=== PATIENT | female | born 1960 | race African-American/Black ===

== ENCOUNTER 2017-02-08 15:00 | Inpatient (IN) | payer OTHER ==
--- NOTE | 2017-02-08 15:49 | PDOC ---
History of Present Illness - General Chief Complaint: Pain Stated Complaint: PAIN/ ABD, BACK Time Seen by Provider: 02/08/17 15:44 History Source: Patient Exam Limitations: No Limitations - History of Present Illness Initial Comments: CHIEF COMPLAINT: 56 y/o afebrile female with PMH NIDDM c/o worsening abdominal pain that she attributes to her gallstones x 3 days. HISTORY OF PRESENT ILLNESS: The patient states she has known gallstones and thinks that's what is causing her current pain. She also c/o mild nausea and diarrhea. She denies f/c, DEY, CP, SOB, back pain, hematuria, dysuria. She has not taken anything for her symptoms. PCP is Dr. Ramos Vital signs on arrival are within normal limits. REVIEW OF SYSTEMS: GENERAL/CONSTITUTIONAL: No fever/chills. No weakness. No weight change. HEAD, EYES, EARS, NOSE AND THROAT: No change in vision. No ear pain or discharge. No sore throat. CARDIOVASCULAR: No chest pain or shortness of breath. RESPIRATORY: No cough, wheezing, or hemoptysis. GASTROINTESTINAL: +abdominal pain, nausea, diarrhea. No vomiting, constipation. GENITOURINARY: No dysuria, frequency, or change in urination. MUSCULOSKELETAL: No joint or muscle swelling or pain. No neck or back pain. SKIN: No rash or easy bruising. NEUROLOGIC: No headache, vertigo, loss of consciousness, or loss of sensation. PHYSICAL EXAM: GENERAL: The patient is awake, alert, and fully oriented, in no acute distress. She is an obese, ambulatory female in mild discomfort. HEAD: Normal with no signs of trauma. ENT: Pupils equal, round and reactive to light, extraocular movements intact, sclera anicteric, conjunctiva clear. Neck supple. LUNGS: Clear to auscultation bilaterally. Normal excursion. No respiratory distress or use of accessory muscles. CV: RRR, S1/S2, no MRG. Cap refill < 2 sec. ABDOMEN: Soft, RUQ TTP with +Milligan's sign. Minimal epigastric TTP. No rebound , guarding or rigidity. No lower abdominal TTP. EXTREMITIES: Normal range of motion, no edema. NEUROLOGICAL: Normal speech, normal gait. CN II-XII grossly intact. PSYCH: Normal mood, normal affect. SKIN: Warm, dry, normal turgor, no rashes or lesions noted. Past History - Past Medical History Allergies/Adverse Reactions: Allergies Allergy/AdvReac Type Severity Reaction Status Date / Time No Known Allergies Allergy Verified 02/08/17 15:03 Home Medications: Ambulatory Orders Metformin HCl 500 mg PO BID #60 tablet 02/13/17 Asthma: Yes Diabetes: Yes Hypercholesterolemia: Yes - Surgical History Abdominal Surgery: Yes (tummy tuck) - Psycho/Social/Smoking Cessation Hx Anxiety: No Suicidal Ideation: No Smoking Status: No Smoking History: Never smoked Number of Cigarettes Smoked Daily: 0 Information on smoking cessation initiated: No Hx Alcohol Use: Yes (occasional) Drug/Substance Use Hx: No Substance Use Type: None *Physical Exam - Vital Signs Last Vital Signs Temp Pulse Resp BP Pulse Ox 97.9 F 65 17 126/95 98 02/08/17 15:02 02/08/17 15:02 02/08/17 15:02 02/08/17 15:02 02/08/17 15:02 ED Treatment Course - LABORATORY CBC & Chemistry Diagram: 02/10/17 06:20 02/13/17 06:05 Medical Decision Making - Medical Decision Making A/P: 56 y/o afebrile female with worsening RUQ pain x 3 days. Possible cholecystitis. Plan is as follows: 1. Labs 2. UA/hcg 3. Gallbladder ultrasound 4. IV fluids 5. IV pepcid Gallbladder Ultrasound IMPRESSION: Mild hepatomegaly with fatty infiltration. Gallbladder stones with the largest possibly nonmobile stone at the fundus measuring 2.2cm with a sludge layering posteriorly. No sonographic evidence of acute cholecystitis. Correlate clinically for further evaluation. I am signing this patient out to my colleague: CAROLYN Curtis In brief, this patient is being seen in the ED for a chief complaint of: RUQ pain I have completed the initial assessment interview note and have ordered: labs, gallbladder ultrasound, IV fluids, IV pepcid I have reviewed the following results: gallbladder ultrasound Pending results are: rest Please call the PCP: Dr. Ramos Plan for disposition is as follows: Review labs, reassess *DC/Admit/Observation/Transfer Diagnosis at time of Disposition: Cholelithiasis - Discharge Dispostion Disposition: HOME Condition at time of disposition: Critical - Prescriptions - Referrals
[2017-02-08] MEDS ORDERED: SODIUM CHLORIDE 1,000 ML IV STA (16:00)
[2017-02-08 18:37] LABS: URINE APPEARANCE CLEAR; URINE BLOOD NEGATIVE (NEGATIVE); URINE COLOR AMBER; URINE GLUCOSE (UA) 1+ (NEGATIVE); URINE KETONE TRACE (NEGATIVE); URINE LEUK ESTERASE NEGATIVE (NEGATIVE); URINE NITRITE NEGATIVE (NEGATIVE); URINE UROBILINOGEN 4.0 E.U/dl mg/dL (0.2-1.0)
[2017-02-08] MEDS ORDERED: FAMOTIDINE 20 MG/50 ML IVPB 50 ML IVPB ONE ×2 (18:37→19:02)
[2017-02-08 18:45] LABS: BASOPHIL 0.4 % (0-2.0); EOSINOPHIL 1.3 % (0-4.5); MCH 27.7 pg (25.7-33.7); MEAN CELL VOLUME 86.6 fl (80-96); NEUTROPHILS 63.6 % (42.8-82.8); PLATELET COUNT 209 K/MM3 (134-434); RDW 14.7 % (11.6-15.6); WHITE BLOOD COUNT 6.2 K/mm3 (4.0-10.0)
[2017-02-08 19:09] LABS: URINE PROTEIN 1+ (NEGATIVE)
[2017-02-08 19:10] LABS: ALBUMIN 3.7 g/dl (3.4-5.0); ANION GAP 7 (8-16); BILIRUBIN,TOTAL 1.9 mg/dL (0.2-1.0); CALCIUM 9.2 mg/dL (8.5-10.1); CO2 31 mmol/L (21-32); CREATININE 0.8 mg/dL (0.55-1.02); GLUCOSE,RANDOM 104 mg/dL (74-106); SGOT/AST 288 U/L (15-37); SGPT/ALT 163 U/L (12-78); TOT PROT 7.4 g/dl (6.4-8.2)
[2017-02-08 19:11] LABS: ALK PHOS 165 U/L (45-117)
[2017-02-08] MEDS ORDERED: ONDANSETRON 4 MG/2 ML VIAL IVPUSH ONE (19:43)
[2017-02-08] MEDS ORDERED: ONDANSETRON 4 MG/2 ML VIAL ONE (19:50)
--- NOTE | 2017-02-08 20:13 | PDOC ---
*Physical Exam - Vital Signs Last Vital Signs Temp Pulse Resp BP Pulse Ox 97.9 F 65 17 126/95 98 02/08/17 15:02 02/08/17 15:02 02/08/17 15:02 02/08/17 15:02 02/08/17 15:02 - Physical Exam Comments: 02/08/17 19:15 Sign-out received from outgoing ER provider Pravin. Pt interviewed and examined. Ancillary studies reviewed. Awaiting labs. 02/08/17 19:58 Laboratory Tests 02/08/17 17:20 Total Bilirubin 1.9 H D AST 288 H D ALT 163 H D Alkaline Phosphatase 165 H D Patient continues to c/o of persistent RUQ pain and nausea. Patient riffler tender on exam. Discussed case with on-call surgeon Dr. Monroe; patient needs MRCP. Will admit for MRCP and GI consult. MD Monroe will come see patient. 02/08/17 20:32 Discussed case with hospitalist resident MD Fields, patient to be admitted to med /surg. ED Treatment Course - LABORATORY CBC & Chemistry Diagram: 02/08/17 17:20 02/08/17 17:20 - ADDITIONAL ORDERS Additional order review: Laboratory Results 02/08/17 02/08/17 17:20 17:20 Sodium 139 Potassium 4.0 Chloride 101 Carbon Dioxide 31 Anion Gap 7 L BUN 11 Creatinine 0.8 Creat Clearance w eGFR > 60 Random Glucose 104 Calcium 9.2 Total Bilirubin 1.9 H D AST 288 H D ALT 163 H D Alkaline Phosphatase 165 H D Total Protein 7.4 Albumin 3.7 Lipase 212 Urine Color Renetta Urine Appearance Clear Urine pH 6.0 Urine Protein 1+ H Urine Glucose (UA) 1+ H Urine Ketones Trace H Urine Blood Negative Urine Nitrite Negative Urine Bilirubin 2.0 Urine Urobilinogen 4.0 e.u/dl H Ur Leukocyte Esterase Negative Urine HCG, Qual Negative 02/08/17 17:20 RBC 4.52 MCV 86.6 MCHC 32.0 RDW 14.7 MPV 9.0 Neutrophils % 63.6 D Lymphocytes % 27.0 D Monocytes % 7.7 Eosinophils % 1.3 Basophils % 0.4 - Medications Given in the ED: ED Medications Discontinued Medications Generic Name Dose Route Start Last Admin Trade Name Freq PRN Reason Stop Dose Admin Sodium Chloride 1,000 mls @ 1,000 mls/hr 02/08/17 16:00 02/08/17 16:04 Normal Saline - IV 02/08/17 16:59 1,000 mls/hr ASDIR STA Administration Famotidine/Sodium Chloride 50 mls @ 100 mls/hr 02/08/17 18:37 02/08/17 19:00 Pepcid 20 Mg Premixed Ivpb - IVPB 02/08/17 19:06 100 mls/hr ONCE ONE Administration Ondansetron HCl 4 mg 02/08/17 19:43 02/08/17 19:48 Zofran Injection IVPUSH 02/08/17 19:44 4 mg ONCE ONE Administration *DC/Admit/Observation/Transfer Diagnosis at time of Disposition: Cholelithiasis - Discharge Dispostion Admit: Yes - Referrals - Patient Instructions - Post Discharge Activity
--- NOTE | 2017-02-08 20:35 | PN ---
Teaching Attending Note Name of Resident: Ana Luisa Fields ATTENDING PHYSICIAN STATEMENT I saw and evaluated the patient. I reviewed the resident's note and discussed the case with the resident. I agree with the resident's findings and plan as documented. SUBJECTIVE: 56 yo F with pmhx of NIDDM, Asthma, hemmoriods who presents with abdominal pain X 3 days. States she has bright red blood from her hemmoriods occasionally. Notes she has nausea, but no vomiting. No chest pain, pressure or shortness of breath. OBJECTIVE: Physical: VS: Vital Signs Period Temp Pulse Resp BP Sys/Gonzalez Pulse Ox Last 24 Hr 97.9 F 65 17 126/95 98-98 GEN: NAD, resting in bed HEENT: NCAT, PERRL, throat without erythema or exudates CARD: RRR S1, S2 RESP: CTAB ABD: BS X4, NTD to palpation EXT: Trace pitting edema, bilateral and equal CBCD WBC 6.2 K/mm3 (4.0-10.0) 02/08/17 17:20 RBC 4.52 M/mm3 (3.60-5.2) 02/08/17 17:20 Hgb 12.5 GM/dL (10.7-15.3) 02/08/17 17:20 Hct 39.2 % (32.4-45.2) 02/08/17 17:20 MCV 86.6 fl (80-96) 02/08/17 17:20 MCHC 32.0 g/dl (32.0-36.0) 02/08/17 17:20 RDW 14.7 % (11.6-15.6) 02/08/17 17:20 Plt Count 209 K/MM3 (134-434) 02/08/17 17:20 MPV 9.0 fl (7.5-11.1) 02/08/17 17:20 CMP Sodium 139 mmol/L (136-145) 02/08/17 17:20 Potassium 4.0 mmol/L (3.5-5.1) 02/08/17 17:20 Chloride 101 mmol/L (98-107) 02/08/17 17:20 Carbon Dioxide 31 mmol/L (21-32) 02/08/17 17:20 Anion Gap 7 (8-16) L 02/08/17 17:20 BUN 11 mg/dL (7-18) 02/08/17 17:20 Creatinine 0.8 mg/dL (0.55-1.02) 02/08/17 17:20 Creat Clearance w eGFR > 60 (>60) 02/08/17 17:20 Random Glucose 104 mg/dL (74-106) 02/08/17 17:20 Calcium 9.2 mg/dL (8.5-10.1) 02/08/17 17:20 Total Bilirubin 1.9 mg/dL (0.2-1.0) H D 02/08/17 17:20 AST 288 U/L (15-37) H D 02/08/17 17:20 ALT 163 U/L (12-78) H D 02/08/17 17:20 Alkaline Phosphatase 165 U/L (45-117) H D 02/08/17 17:20 Total Protein 7.4 g/dl (6.4-8.2) 02/08/17 17:20 Albumin 3.7 g/dl (3.4-5.0) 02/08/17 17:20 ABD US: Mild hepatomegaly with fatty infilteration, Cholelithiasis w non-mobile stone @ fundus 2.2cm, posterior sludge. No acute choley by US ASSESSMENT AND PLAN: 56 F with NIDDM who presents with abdominal pain found to have inc; bili and lfts with choleithiasis, will be admitted for ro choledcholithiasis 1.) Abdominal Pain DDx: Choledocholithiasis, acute choley - MRCP - NPO - IVF - Type and screen/coags - abx - Sx. Consult 2.) NIDDM - FS - RAISS 3.) Hemmoriodal bleed - Pt. deferred rectal - Stool occult - repeat cbc - OF NOTE pt. Does not want blood transfusions Place in Med- Sx
--- NOTE | 2017-02-08 20:36 | HP ---
CHIEF COMPLAINT: RUQ pain , h/O gallbladder stone PCP:Dr. Ray CÁRDENAS HISTORY OF PRESENT ILLNESS: Patient is 56 y O female With PMHx of HLD, NIDDMII, asthma, Cholelithiasis(2014) who presented to the ED today with 3 days history of worsening RUQ abdominal pain. The pain worsened last night 10/10 Radiating to her back, associated with nausea but no vomiting. She reports diarrhea # days, yellowish , non bloody, dark urine, but she denies fever, chills, SOB, sore throat, cough, or any urinary symptoms.She has similar symptoms in 2014 that she was hospitalized for. She reports anal hemorrhoids with bright red blood covering the stool. ER course was notable for: 1. Labs: Elevated LFTs , and bilurubin 2. UA/hcg: negative 3. Gallbladder ultrasound: 2.2 cm with sludge layers but no acute cholecystitis 4. IV fluids 5. IV pepcid Recent Travel:NO PAST MEDICAL HISTORY: Asthma, Choledocholithiasis PAST SURGICAL HISTORY: No previous surgery, but she was hospitalised for similira symptoms 2014. Social History: Smoking:None Alcohol: 3-4cups of wine on weekends. Drugs: Marijuana as teenage. Family History: # Mother: gallbladder stone, HTN , DM # Father : HTN, Gout. Allergies She had a rash allergy secondary to medicine but she does not know the name. No Known Allergies Allergy (Verified 02/08/17 15:03) HOME MEDICATIONS: Home Medications Medication Instructions Recorded NK [No Known Home Medication] 03/07/16 Current Medications Generic Name Dose Route Start Last Admin Trade Name Sue PRN Reason Stop Dose Admin Sodium Chloride 1,000 mls @ 100 mls/hr 02/08/17 21:30 02/08/17 21:21 Normal Saline - IV 100 mls/hr ASDIR MARKOS Administration Metronidazole 100 mls @ 100 mls/hr 02/09/17 06:00 Flagyl 500mg Premixed Ivpb - IVPB Q8H-IV MARKOS Levofloxacin 100 mls @ 100 mls/hr 02/09/17 10:00 Levaquin 500 Mg Premixed Ivpb - IVPB DAILY MARKOS Insulin Aspart 1 vial 02/08/17 22:00 02/08/17 21:54 Novolog Vial Sliding Scale - SQ Not Given ACHS MARKOS Protocol Morphine Sulfate 2 mg 02/08/17 21:16 Morphine Injection - IVPUSH Q4H PRN PAIN REVIEW OF SYSTEMS per HPI PHYSICAL EXAMINATION Vital Signs - 24 hr 02/08/17 02/08/17 15:02 19:30 Temperature 97.9 F Pulse Rate 65 Respiratory 17 Rate Blood Pressure 126/95 O2 Sat by Pulse 98 98 Oximetry (%) GENERAL: Awake, alert, and fully oriented, in no acute distress. HEAD: Normal with no signs of trauma. EYES: Pupils equal, round and reactive to light, extraocular movements intact, sclera anicteric, conjunctiva clear. No lid lag. EARS, NOSE, THROAT: Ears normal, nares patent, oropharynx clear without exudates. Moist mucous membranes. NECK: Normal range of motion, supple without lymphadenopathy, JVD, or masses. LUNGS: Breath sounds equal, clear to auscultation bilaterally. No wheezes, and no crackles. No accessory muscle use. HEART: Regular rate and rhythm, normal S1 and S2 without murmur, rub or gallop. ABDOMEN: Soft, RUQ and LUQ tender to palpation, Obese not distended, normoactive bowel sounds, no guarding,rebound tenderness, no masses. No hepatomegaly or splenomegaly. MUSCULOSKELETAL: Normal range of motion at all joints. No bony deformities or tenderness. No CVA tenderness. UPPER EXTREMITIES: 2+ pulses, warm, well-perfused. No cyanosis. No clubbing. No peripheral edema. LOWER EXTREMITIES: 2+ pulses, warm, well-perfused. No calf tenderness. No peripheral edema. NEUROLOGICAL: no focal deficit . Normal speech. PSYCHIATRIC: Cooperative. Good eye contact. Appropriate mood and affect. SKIN: Warm, dry, normal turgor, no rashes or lesions noted, normal capillary refill. Laboratory Results - last 24 hr 02/08/17 02/08/17 02/08/17 17:20 17:20 17:20 WBC 6.2 RBC 4.52 Hgb 12.5 Hct 39.2 MCV 86.6 MCH 27.7 MCHC 32.0 RDW 14.7 Plt Count 209 MPV 9.0 Neutrophils % 63.6 D Lymphocytes % 27.0 D Monocytes % 7.7 Eosinophils % 1.3 Basophils % 0.4 Sodium 139 Potassium 4.0 Chloride 101 Carbon Dioxide 31 Anion Gap 7 L BUN 11 Creatinine 0.8 Creat Clearance w eGFR > 60 Random Glucose 104 Calcium 9.2 Total Bilirubin 1.9 H D AST 288 H D ALT 163 H D Alkaline Phosphatase 165 H D Total Protein 7.4 Albumin 3.7 Lipase 212 Urine Color Renetta Urine Appearance Clear Urine pH 6.0 Urine Protein 1+ H Urine Glucose (UA) 1+ H Urine Ketones Trace H Urine Blood Negative Urine Nitrite Negative Urine Bilirubin 2.0 Urine Urobilinogen 4.0 e.u/dl H Ur Leukocyte Esterase Negative Urine HCG, Qual Negative Gallbladder Ultrasound: 02/08/2017 IMPRESSION: Mild hepatomegaly with fatty infiltration. Gallbladder stones with the largest possibly nonmobile stone at the fundus measuring 2.2cm with a sludge layering posteriorly. No stenographic evidence of acute cholecystitis. Correlate clinically for further evaluation. ASSESSMENT/PLAN: Patient is 65 y O female With PMHx of HLD, NIDDMII, seasonal asthma, Cholelithiasis (2014) who presented to the ED today with 3 days history of worsening RUQ abdominal pain with Nausea and diarrhea, found to have 2.2 cm , non mobile stone, and elevated LFTs and total bilirubin. will admit to med surg for further evaluation. #RUQ abdominal pain likely 2/2 cholelithiasis vs acute cholecystitis vs choledocholithiasis * US : .2.2 cm fundus Gallblader stone with sludge layering posteriorly, common bile duct 6 mm. No evedince of acute cholecystitis * Elevated LFTs (AST 288- ALT 163- total bilirubin 1.9 ) * NPO after mid * IV fluids 0.9 NS @ 100 CC/h * Pain control : morphine 2 mg IVPUSH Q 4 H PRN for pain * Antibiotics : Metronidazole 500 mg IVbp daily , Levofluxacie 500 mg IVbp daily * Zofran 4 mg IV push once * MRCP * Surgery consult * GI consult * Type and screen, Coagulations * * * # hemorrhoids, Chronic * Bright red blood covering the stool and following the stool * Colonoscopy 10 Years a go negative * Occult blood ordered(PHONG delayed per patient request , will do occult when she move her bowel) * Repeat CBC * F/U as out patient * # Asthma ,Seasonal * In no acute exacerbation * Continue home meds Symbicort PRN * * # NIDDMII: * On metformin at Home, will hold now * FS , RAISS * Novolog via sliding scale ACHS Markos protocol * # HLD, chronic * not cobliant with her med (statin) * F/U lipid panel * #Proph, * DVT, Low risk, Early mobility as tolerated. * * #F/E/N * Fluids : 0.9 NS @ 100 CC * Electrolytes WNL * diet: NPO over night , diabetic diet tomorrow. * * #Dispo: * Admit to med Surg * Full code * Jehova witness no blood transfusion Visit type - Emergency Visit Emergency Visit: Yes ED Registration Date: 02/08/17 Care time: The patient presented to the Emergency Department on the above date and was hospitalized for further evaluation of their emergent condition. - New Patient This patient is new to me today: Yes Date on this admission: 02/12/17 - Critical Care Critical Care patient: No
--- NOTE | 2017-02-08 20:41 | HP ---
HISTORY OF PRESENT ILLNESS: Patient is a 56 year old female with a PMHx of NIDDMII, HLD, Asthma, and cholelithiasis who presents for right upper quadrant pain for the last three days associated with nausea but no vomiting and diarrhea. Patient states she has a history of gallstones and has experienced similar pain the past. Otherwise, patient denies fever, chills, chest pain, palpitations, shortness of breath. REVIEW OF SYSTEMS (+) Nausea, abdominal pain, diarrhea (-) Fever, chills, vomiting, hematuria, dysuria PHYSICAL EXAMINATION Vital Signs - 24 hr 02/08/17 02/08/17 15:02 19:30 Temperature 97.9 F Pulse Rate 65 Respiratory 17 Rate Blood Pressure 126/95 O2 Sat by Pulse 98 98 Oximetry (%) GENERAL: Awake, alert, and fully oriented, in mild painful distress. LUNGS: Breath sounds equal, clear to auscultation bilaterally. No wheezes, and no crackles. No accessory muscle use. HEART: Regular rate and rhythm, normal S1 and S2 without murmur, rub or gallop. ABDOMEN:Soft, right upper quadrant tenderness upon palpation, (+) Milligan's sign , normoactive bowel sounds, no guarding, no rebound, no masses. No hepatomegaly or splenomegaly. LOWER EXTREMITIES: No calf tenderness. No peripheral edema. Laboratory Results - last 24 hr 02/08/17 02/08/17 02/08/17 17:20 17:20 17:20 WBC 6.2 RBC 4.52 Hgb 12.5 Hct 39.2 MCV 86.6 MCH 27.7 MCHC 32.0 RDW 14.7 Plt Count 209 MPV 9.0 Neutrophils % 63.6 D Lymphocytes % 27.0 D Monocytes % 7.7 Eosinophils % 1.3 Basophils % 0.4 Sodium 139 Potassium 4.0 Chloride 101 Carbon Dioxide 31 Anion Gap 7 L BUN 11 Creatinine 0.8 Creat Clearance w eGFR > 60 Random Glucose 104 Calcium 9.2 Total Bilirubin 1.9 H D AST 288 H D ALT 163 H D Alkaline Phosphatase 165 H D Total Protein 7.4 Albumin 3.7 Lipase 212 Urine Color Renetta Urine Appearance Clear Urine pH 6.0 Urine Protein 1+ H Urine Glucose (UA) 1+ H Urine Ketones Trace H Urine Blood Negative Urine Nitrite Negative Urine Bilirubin 2.0 Urine Urobilinogen 4.0 e.u/dl H Ur Leukocyte Esterase Negative Urine HCG, Qual Negative IMAGES Abdominal U/S (02/08/17): Mild hepatomegaly with fatty infiltration. Gallbladder stones with the largest possibly nonmobile stone at the fundus measuring 2.2 cm with a sludge layering posteriorly. No sonographic evidence of acute cholecystitis. ASSESSMENT/PLAN: Patient is a 56 year old female with a PMHx of NIDDMII, HLD, asthma and cholelithiasis who presents for progressively worsening RUQ abdominal pain for the last 3 days associated with nausea and diarrhea. Patient's LFT's and bilirubin were found to be elevated with an U/S revealing 2.2cm stone with sludging. Patient admitted for further monitoring and management. RUQ Abdominal Pain likely secondary to Cholelithiasis R/O Acute Cholecystitis/ Choledocholithiasis -Elevated LFT's -U/S negative for acute cholecystitis but showed sludging -MRCP ordered to rule out choledocholithiasis. If positive will do ERCP -IV Fluids for hydration -IV abx with Levofloxacin and Flagyl -Zofran for nausea and vomiting -Morphine for pain control -Coags, Type and Screen. -NPO -Surgery consult placed -GI consult placed by ED NIDDMII- Controlled. BGM and ISS Asthma- Controlled. Symbicort PRN Hemorrhoids-Reports bleeding when using the bathroom. U/A negative for blood. Stool occult ordered F/E/N- IV Fluids with NS. Electrolytes wnl. NPO Prophylaxis- Low risk. EAM. Heparin SQ Q8H for DVT. No GI needed. Disposition- Full code. Jehovah Witness and does not want any blood products. Admit to med/surg for MRCP Discussed with medical team and attending. Full H&P to follow Visit type - Emergency Visit Emergency Visit: Yes ED Registration Date: 02/08/17 Care time: The patient presented to the Emergency Department on the above date and was hospitalized for further evaluation of their emergent condition. - New Patient This patient is new to me today: Yes Date on this admission: 02/09/17 - Critical Care Critical Care patient: No
[2017-02-08] MEDS ORDERED: METRONIDAZOLE 500 MG PREMIXED 100 ML IVPB ONE ×2 (21:15→21:24)
[2017-02-08] MEDS ORDERED: LEVOFLOXACIN 500 MG IVPB 100 ML IVPB ONE ×2 (21:15→21:24)
[2017-02-08] MEDS ORDERED: morphine CARPU-JECT 2 MG/1 ML DISP.SYRIN IVPUSH PRN (21:16)
[2017-02-08] MEDS: SODIUM CHLORIDE 1,000 ML IV SCH (21:21)
[2017-02-08] MEDS: INSULIN SLIDING SCALE (NOVOLOG) 1 VIAL SQ SCH (21:54)
[2017-02-08 22:22] LABS: URINE BACTERIA RARE /hpf (NONE SEEN); URINE MUCUS FEW; URINE RBC 2 /hpf (0-3); URINE WBC 4 /hpf (3-5)
[2017-02-09 00:39] VITALS: BMI 38.4
[2017-02-09] MEDS: METRONIDAZOLE 500 MG PREMIXED 100 ML IVPB SCH ×3 (06:01→17:10)
[2017-02-09] MEDS: INSULIN SLIDING SCALE (NOVOLOG) 1 VIAL SQ SCH ×4 (06:01→21:35)
[2017-02-09 07:51] LABS: MCH 28.1 pg (25.7-33.7); MCHC 32.6 g/dl (32.0-36.0); MEAN CELL VOLUME 86.2 fl (80-96); MEAN PLT VOLUME 8.8 fl (7.5-11.1); PLATELET COUNT 187 K/MM3 (134-434); RDW 14.4 % (11.6-15.6); WHITE BLOOD COUNT 4.9 K/mm3 (4.0-10.0)
[2017-02-09 08:30] LABS: ALBUMIN 3.3 g/dl (3.4-5.0); ALK PHOS 183 U/L (45-117); ANION GAP 9 (8-16); BILIRUBIN,TOTAL 2.9 mg/dL (0.2-1.0); CALCIUM 8.6 mg/dL (8.5-10.1); CO2 26 mmol/L (21-32); CREATININE 0.7 mg/dL (0.55-1.02); GLUCOSE,RANDOM 128 mg/dL (74-106); TOT PROT 6.5 g/dl (6.4-8.2)
[2017-02-09 08:31] LABS: SGOT/AST 532 U/L (15-37); SGPT/ALT 418 U/L (12-78)
[2017-02-09] MEDS: LEVOFLOXACIN 500 MG IVPB 100 ML IVPB SCH (09:05)
--- NOTE | 2017-02-09 10:17 | EKG ---
Test Reason : Blood Pressure : / mmHG Vent. Rate : 064 BPM Atrial Rate : 064 BPM P-R Int : 166 ms QRS Dur : 086 ms QT Int : 384 ms P-R-T Axes : -19 037 046 degrees QTc Int : 396 ms NORMAL SINUS RHYTHM NORMAL ECG WHEN COMPARED WITH ECG OF 19-JUL-2012 13:02, NO SIGNIFICANT CHANGE WAS FOUND Confirmed by MD CLRAY, RANDY ([id number]) on 02/09/2017 10:17:21 AM Referred By: Confirmed By:RANDY MEANS MD
[2017-02-09 10:26] LABS: INR 1.15 (0.82-1.09); PROTHROMBIN TIME (PATIENT) 12.7 SEC (9.98-11.88)
--- NOTE | 2017-02-09 13:47 | PN ---
Teaching Attending Note Name of Resident: Kendrick Lane ATTENDING PHYSICIAN STATEMENT I saw and evaluated the patient. I reviewed the resident's note and discussed the case with the resident. I agree with the resident's findings and plan as documented. SUBJECTIVE: Patient reports pain is better with morphine. OBJECTIVE: Vital Signs Period Temp Pulse Resp BP Sys/Gonzalez Pulse Ox Last 24 Hr 97.9 F-99 F 58-68 17-20 126-151/76-95 98-99 HEART: S1S2, RRR LUNGS: Clear ABDOMEN: Obese, soft, non-distended, (+) RUQ tenderness, normal BS EXTREMITIES: No edema ASSESSMENT AND PLAN: This is a 65-year-old woman with a history of type 2 DM, hyperlipidemia, asthma , cholelithiasis who presented to the ER with RUQ abdominal pain and nausea. 1. Biliary colic and possible choledocholithiasis - AST, ALT, alk phos, total bili all increasing - Continue NPO, IV fluid - Continue Levaquin, Flagyl, morphine as needed for pain, Zofran as needed for nausea - Surgery consult - MRCP - GI consult for ERCP if needed 2. Type 2 DM - Metformin held - Continue Novolog sliding scale 3. Asthma - Stable 4. Hyperlipidemia 5. Obesity with BMI 38.4
--- NOTE | 2017-02-09 13:57 | PN ---
Progress Note (short form) - Note Progress Note: surgery pt seen and examined. full consult dictated. 56f morbidly obese, dm, with known gallstones presents with upper abd pain for 3 days with nausea and diarrhea. u/s confirms gallstones with prominence of cbd. Lfts were elevated and increased overnight. on exam abd is obese with mild upper abd tenderness. lower abdominoplasty scar Plan- clinically choledocholithiasis. for mrcp. suggest gi eval for ercp. eventual cholecystectomy when cbd cleared.
--- NOTE | 2017-02-09 16:26 | CON.GI ---
Consult Consult Specialty:: GI Referred by:: hospitalist Reason for Consultation:: abdominal pain - History of Present Illness Chief Complaint: abdominal pain History of Present Illness: 56 F with h/o DM, HLD, asthma and known cholelithiasis (has had intermittent RUQ pain in the past) admitted with 3 days of accelerating RUQ painwith nausea. LFTs have doubled over 24 hours with t bili going from 1.9-->2.9. She is comfortable at this time. Of note, she is supposed to be on meds for her medical issues but doesn't take them. - History Source History Provided By: Patient Limitations to Obtaining History: No Limitations - Past Medical History Hepatobiliary: Yes: Cholelithiasis ...: No - Alcohol/Substance Use Hx Alcohol Use: Yes (occasional) - Smoking History Smoking history: Never smoked Aproximately how many cigarettes per day: 0 Home Medications - Allergies Allergies/Adverse Reactions: Allergies Allergy/AdvReac Type Severity Reaction Status Date / Time No Known Allergies Allergy Verified 02/08/17 15:03 - Home Medications Home Medications: Ambulatory Orders NK [No Known Home Medication] 03/07/16 Physical Exam-GI Vital Signs: Vital Signs Temperature 98.4 F 02/09/17 14:25 Pulse Rate 58 L 02/09/17 14:25 Respiratory Rate 18 02/09/17 14:25 Blood Pressure 143/79 02/09/17 14:25 O2 Sat by Pulse Oximetry (%) 99 02/09/17 09:00 Constitutional: Yes: Well Nourished, Calm, Obese Eyes: Yes: WNL HENT: Yes: Normocephalic Neck: Yes: Supple Cardiovascular: Yes: Regular Rate and Rhythm Respiratory: Yes: CTA Bilaterally ...Auscultate: Yes: Normoactive Bowel Sounds ...Palpate: Yes: Soft, Tenderness (RUQ-mild) Labs: CBC, BMP 02/09/17 06:05 02/09/17 06:05 INR, PTT INR 1.15 (0.82-1.09) H 02/09/17 09:54 Imaging - Results Ultrasound: Report Reviewed (gallstones) Assessment/Plan 56 F with h/o gallstones now with abdominal pain and elevated LFTs in a pattern suggesting choledocholithiasis. For ERCP later today. Then cholecystectomy NPO
--- NOTE | 2017-02-09 16:50 | PN ---
Physical Exam: SUBJECTIVE: Patient seen and examined at bedside. Pt states that she feels better than the day prior. Pt denies SOB, abdominal or extremity pain. OBJECTIVE: Vital Signs Period Temp Pulse Resp BP Sys/Gonzalez Pulse Ox Last 24 Hr 98.3 F-98.8 F 58-68 17-18 140-143/76-82 98-99 GENERAL: The patient is awake, alert, and fully oriented, in no acute distress. HEAD: Normal with no signs of trauma. EYES: PERRL, extraocular movements intact, sclera anicteric, conjunctiva clear. ENT: oropharynx clear without exudates, moist mucous membranes. NECK: Trachea midline, supple. LUNGS: Breath sounds equal, clear to auscultation bilaterally, no wheezes, no crackles, no accessory muscle use. HEART: Regular rate and rhythm, S1, S2 without murmur, rub or gallop. ABDOMEN: Soft, nontender, nondistended, normoactive bowel sounds, no guarding, no rebound EXTREMITIES: 2+ posterior tibial pulses, warm, well-perfused, no edema. NEUROLOGICAL: Cranial nerves II through XII grossly intact. Laboratory Results - last 24 hr 02/08/17 02/08/17 02/09/17 21:51 21:53 05:53 WBC RBC Hgb Hct MCV MCH MCHC RDW Plt Count MPV INR PTT (Actin FS) 28.5 Sodium Potassium Chloride Carbon Dioxide Anion Gap BUN Creatinine Creat Clearance w eGFR POC Glucometer [phone] Random Glucose Calcium Total Bilirubin AST ALT Alkaline Phosphatase Total Protein Albumin Blood Type Antibody Screen 02/09/17 02/09/17 02/09/17 06:05 06:05 06:05 WBC 4.9 RBC 4.23 Hgb 11.9 Hct 36.5 MCV 86.2 MCH 28.1 MCHC 32.6 RDW 14.4 Plt Count 187 MPV 8.8 INR PTT (Actin FS) Sodium 140 Potassium 3.7 Chloride 105 Carbon Dioxide 26 Anion Gap 9 BUN 9 Creatinine 0.7 Creat Clearance w eGFR > 60 POC Glucometer Random Glucose 128 H D Calcium 8.6 Total Bilirubin 2.9 H D AST 532 H D ALT 418 H D Alkaline Phosphatase 183 H Total Protein 6.5 Albumin 3.3 L Blood Type O POSITIVE Antibody Screen Negative 02/09/17 02/09/17 02/09/17 09:08 09:54 11:26 WBC RBC Hgb Hct MCV MCH MCHC RDW Plt Count MPV INR 1.15 H PTT (Actin FS) Sodium Potassium Chloride Carbon Dioxide Anion Gap BUN Creatinine Creat Clearance w eGFR POC Glucometer 118 Random Glucose Calcium Total Bilirubin AST ALT Alkaline Phosphatase Total Protein Albumin Blood Type O POSITIVE Antibody Screen Active Medications Generic Name Dose Route Start Last Admin Trade Name Freq PRN Reason Stop Dose Admin Sodium Chloride 1,000 mls @ 100 mls/hr 02/08/17 21:30 02/08/17 21:21 Normal Saline - IV 100 mls/hr ASDIR ISMAEL Administration Metronidazole 100 mls @ 100 mls/hr 02/09/17 06:00 02/09/17 09:05 Flagyl 500mg Premixed Ivpb - IVPB 100 mls/hr Q8H-IV ISMAEL Administration Levofloxacin 100 mls @ 100 mls/hr 02/09/17 10:00 02/09/17 09:05 Levaquin 500 Mg Premixed Ivpb - IVPB 100 mls/hr DAILY ISMAEL Administration Insulin Aspart 1 vial 02/08/17 22:00 02/09/17 11:26 Novolog Vial Sliding Scale - SQ Not Given ACHS ISMAEL Protocol Morphine Sulfate 2 mg 02/08/17 21:16 Morphine Injection - IVPUSH Q4H PRN PAIN ASSESSMENT/PLAN: 65 year old F with PMH HLD, NIDDMII, seasonal asthma, cholelithiasis (2014), who presented to ED today with 3 days history of worsening RUQ abdominal pain admitted for RUQ pain secondary to choledocholithiasis 1. RUQ abdominal pain likely secondary to choledocholithiasis -U/S revealed 2.2cm fundus Gallbladder stone with sludge layering posteriorly, CBD 6mm -Elevated LFTs AST 288, ALT 163, Total bili 1.9 suggests clinical picture of choledocholithiasis -Pain control: 2mg morphine IVP q4 PRN -NPO for MRCP tonight, possible ERCP at 1pm tomorrow, unless patient develops cholangitis symptoms and needs procedure emergently -Cholecystectomy to be performed on Sunday -IVF NS @ 100 cc/hr -Continue metronidazole 500 mg q8 IVPB, Levofloxacin 50mg IVPB daily -F/u CBC, hepatic panel tomorrow -Consulted Dr. Parsons for GI -Consulted Dr. Hernandez (surgery) 2. Hemorrhoids, chronic -on admission bright red blood covering stool as per patient -Pt currently constipated from pain medications, will reassess after next BM -declined PHONG 3. Asthma -No acute exacerbation -Continue Symbicort PRN 4. NIDDMII -On metformin at home, will hold now -Follow sugars BGM ACHS -Novolog ISS ACHS 5. HLD -F/u lipid panel Prophylaxis Early ambulation SCD's Diet -Clear liquid diabetic low Na diet -monitor electrolytes General Confucianist- will not accept blood transfusion Visit type - Emergency Visit Emergency Visit: No - New Patient This patient is new to me today: Yes Date on this admission: 02/09/17 - Critical Care Critical Care patient: No
--- NOTE | 2017-02-09 17:31 | PN ---
GI Progress Note Subjective: patient has mild abdominal pain remained afebrile,no nausea, no vomiting - Objective Vital Signs: Vital Signs Temperature 98.4 F 02/09/17 14:25 Pulse Rate 58 L 02/09/17 14:25 Respiratory Rate 18 02/09/17 14:25 Blood Pressure 143/79 02/09/17 14:25 O2 Sat by Pulse Oximetry (%) 99 02/09/17 09:00 Constitutional: Well Nourished Eyes: Yes: Conjunctiva Clear HENT: Yes: Atraumatic Neck: Yes: Supple Cardiovascular: Yes: Regular Rate and Rhythm Respiratory: Yes: CTA Bilaterally ...Palpate: Yes: Soft, Tenderness (--mild). No: Firm/Rigid, Guarding, Hepatomegaly, Mass, Pulsatile Mass, Splenomegaly Labs: CBC, BMP 02/09/17 06:05 02/09/17 06:05 INR, PTT INR 1.15 (0.82-1.09) H 02/09/17 09:54 Problem List - Problems (1) Cholelithiasis Assessment/Plan: elevated LFTS top normal common bile dut r/o CBD stone R> MRCP if postive for stones for possible ERCP in am Code(s): K80.20 - CALCULUS OF GALLBLADDER W/O CHOLECYSTITIS W/O OBSTRUCTION
[2017-02-09] MEDS ORDERED: diphenhydrAMINE HCL 25 MG CAPSULE (FP) PO ONE (23:23)
[2017-02-10] MEDS: METRONIDAZOLE 500 MG PREMIXED 100 ML IVPB SCH ×3 (01:01→17:42)
[2017-02-10] MEDS: SODIUM CHLORIDE 1,000 ML IV SCH (01:01)
[2017-02-10] MEDS: INSULIN SLIDING SCALE (NOVOLOG) 1 VIAL SQ SCH ×4 (06:23→22:15)
[2017-02-10 07:25] LABS: ALBUMIN 3.2 g/dl (3.4-5.0); BASOPHIL 0.6 % (0-2.0); BILIRUBIN,DIRECT 2.9 mg/dL (0.0-0.2); EOSINOPHIL 3.7 % (0-4.5); MCH 28.3 pg (25.7-33.7); MCHC 32.6 g/dl (32.0-36.0); MEAN CELL VOLUME 86.9 fl (80-96); MEAN PLT VOLUME 8.9 fl (7.5-11.1); NEUTROPHILS 49.5 % (42.8-82.8); PLATELET COUNT 174 K/MM3 (134-434); RDW 15.1 % (11.6-15.6); WHITE BLOOD COUNT 4.1 K/mm3 (4.0-10.0)
[2017-02-10 07:27] LABS: BILIRUBIN,TOTAL 3.8 mg/dL (0.2-1.0); TOT PROT 6.3 g/dl (6.4-8.2)
--- NOTE | 2017-02-10 07:59 | CONS ---
DATE OF CONSULTATION: 02/09/2017 REASON FOR CONSULTATION: Cholelithiasis, rule out acute cholecystitis. This is an emergency room consultation requested by the emergency room physician. The patient was subsequently admitted to the hospital and seen on the floor. BRIEF HISTORY: This is a 56-year-old female, morbidly obese, known symptomatic cholelithiasis, who had elected not to have surgery, who presents to [facility] Emergency Room with significant upper abdominal pain, nausea, and mild diarrhea. The patient had an ultrasound of her gallbladder which confirmed gallstones. There were no signs of acute cholecystitis. However, the common bile duct was noted to be prominent at 6 mm. The patient was admitted for possible cholecystitis and a surgical consultation was requested and she was started on Zosyn antibiotic. Overnight, she feels about the same, still has upper abdominal pain. She denies vomiting, denies blood in her stool, denies recent weight loss. Her liver function tests were elevated in the emergency room and climbed higher overnight. PAST MEDICAL HISTORY: Significant for diabetes, hyperlipidemia, asthma, and symptomatic cholelithiasis. PAST SURGICAL HISTORY: Includes an abdominoplasty, a section, liposuction, tonsillectomy, and a meniscus repair. SOCIAL HISTORY: Positive for occasional alcohol consumption. Negative for tobacco. MEDICATIONS: She takes no medications. ALLERGIES: She has no known drug allergies. FAMILY HISTORY: Negative for malignancy in the immediate family. REVIEW OF SYSTEMS: General: Denies fatigue or malaise. Cardiac: Denies chest pain or palpitations. Respiratory: Denies shortness of breath or wheeze. Gastrointestinal: As stated in HPI Genitourinary: Denies dysuria. Musculoskeletal: Denies joint pain and joint swelling. Psychiatric: Denies anxiety, depression, or hearing voices. PHYSICAL EXAMINATION: General: This is a morbidly obese, 56-year-old female in no distress. Vital Signs: She is afebrile and has been since admission. HEENT: Her head is normocephalic. Her sclerae are anicteric. Neck: Supple. Chest: Clear. Abdomen: Soft. It is obese. She has upper abdominal tenderness in the epigastrium and in the right upper quadrant. There is no rebound, no guarding. She has a well-healed abdominoplasty scar without obvious hernia. Extremities: No edema. LABORATORY DATA: On review of her laboratory, her white blood cell count is normal at 4.9 without a shift. Her chemistries show an elevated bilirubin of 2.9. Her AST is 532, her ALT is 418, and her alkaline phosphatase is 183. IMAGING: Her imaging is as stated in the HPI. ASSESSMENT: This is a 56-year-old female with upper abdominal pain, nausea, diarrhea, with known symptomatic cholelithiasis and markedly elevated liver function tests. Clinically, this is choledocholithiasis. I agree with admission. Patient is currently slated to undergo an MRCP. Recommend GI evaluation for likely ERCP. Once the common bile duct has been shown to be clear, would recommend cholecystectomy to prevent future recurrence. It would best that this be done in the inpatient setting if scheduling allows. Patient is currently nontoxic. DO RAUL PEREZ/[id number]
[2017-02-10 08:08] LABS: CHOLESTEROL 218 mg/dL (50-200); LDL CHOLESTEROL (ONLY SJRH) 115 mg/dL (5-100)
[2017-02-10] MEDS: LEVOFLOXACIN 500 MG IVPB 100 ML IVPB SCH (09:00)
[2017-02-10] MEDS ORDERED: MIDAZOLAM HCL 2 MG/2 ML SINGLE DOSE VIAL ONE (11:06)
[2017-02-10] MEDS ORDERED: ROCURONIUM BROMIDE 50 MG/5 ML VIAL ONE (11:06)
[2017-02-10] MEDS ORDERED: ONDANSETRON 4 MG/2 ML VIAL ONE (11:10)
--- NOTE | 2017-02-10 12:28 | PN ---
Physical Exam: SUBJECTIVE: Patient seen and examined at bedside. Pt states that her procedure yesterday (MRCP) went well and is now resting comfortably. Denies SOB, chest or abdominal pain. OBJECTIVE: Vital Signs Period Temp Pulse Resp BP Sys/Gonzalez Pulse Ox Last 24 Hr 98.0 F-98.4 F 58-63 14-20 142-143/79-87 GENERAL: The patient is awake, alert, and fully oriented, in no acute distress. HEAD: Normal with no signs of trauma. EYES: PERRL, extraocular movements intact, sclera anicteric, conjunctiva clear. No ptosis. ENT:oropharynx clear without exudates, moist mucous membranes. NECK: Trachea midline, supple. LUNGS: Breath sounds equal, clear to auscultation bilaterally, no wheezes, no crackles, no accessory muscle use. HEART: Regular rate and rhythm, S1, S2 without murmur, rub or gallop. ABDOMEN: Soft, nontender, nondistended, normoactive bowel sounds, no guarding, no rebound, no hepatosplenomegaly, no masses. EXTREMITIES: 2+ pulses, warm, well-perfused, no edema. NEUROLOGICAL: Cranial nerves II through XII grossly intact. Normal speech, gait not observed. PSYCH: Normal mood, normal affect. SKIN: Warm, dry, normal turgor, no rashes or lesions noted Laboratory Results - last 24 hr 02/09/17 02/09/17 02/10/17 16:50 21:33 06:20 WBC RBC Hgb Hct MCV MCH MCHC RDW Plt Count MPV Neutrophils % Lymphocytes % Monocytes % Eosinophils % Basophils % POC Glucometer 97 129 Total Bilirubin Direct Bilirubin AST ALT Alkaline Phosphatase Total Protein Albumin Triglycerides Cancelled Cholesterol Cancelled Total LDL Cholesterol Cancelled HDL Cholesterol Cancelled 02/10/17 02/10/17 02/10/17 06:20 06:20 06:21 WBC 4.1 RBC 4.14 Hgb 11.7 Hct 36.0 MCV 86.9 MCH 28.3 MCHC 32.6 RDW 15.1 Plt Count 174 MPV 8.9 Neutrophils % 49.5 D Lymphocytes % 38.0 D Monocytes % 8.2 Eosinophils % 3.7 D Basophils % 0.6 POC Glucometer 114 Total Bilirubin 3.8 H D Direct Bilirubin 2.9 H AST 292 H D ALT 397 H Alkaline Phosphatase 188 H Total Protein 6.3 L Albumin 3.2 L Triglycerides Cholesterol Total LDL Cholesterol HDL Cholesterol 02/10/17 02/10/17 06:53 11:25 WBC RBC Hgb Hct MCV MCH MCHC RDW Plt Count MPV Neutrophils % Lymphocytes % Monocytes % Eosinophils % Basophils % POC Glucometer 123 Total Bilirubin Direct Bilirubin AST ALT Alkaline Phosphatase Total Protein Albumin Triglycerides 73 Cholesterol 218 H Total LDL Cholesterol 115 H HDL Cholesterol 66 H Active Medications Generic Name Dose Route Start Last Admin Trade Name Freq PRN Reason Stop Dose Admin Sodium Chloride 1,000 mls @ 100 mls/hr 02/08/17 21:30 02/10/17 01:01 Normal Saline - IV 100 mls/hr ASDIR ISMAEL Administration Metronidazole 100 mls @ 100 mls/hr 02/09/17 06:00 02/10/17 10:26 Flagyl 500mg Premixed Ivpb - IVPB 100 mls/hr Q8H-IV ISMAEL Administration Levofloxacin 100 mls @ 100 mls/hr 02/09/17 10:00 02/10/17 09:00 Levaquin 500 Mg Premixed Ivpb - IVPB 100 mls/hr DAILY ISMAEL Administration Insulin Aspart 1 vial 02/09/17 22:00 02/10/17 12:16 Novolog Vial Sliding Scale - SQ Not Given ACHS ISMAEL Protocol Morphine Sulfate 2 mg 02/08/17 21:16 02/09/17 17:43 Morphine Injection - IVPUSH 2 mg Q4H PRN Administration PAIN ASSESSMENT/PLAN: 1. RUQ abdominal pain likely secondary to choledocholithiasis -Pain control: 2mg morphine IVP q4 PRN -LFTs trending down (AST/ALT: 292/397 today from 532/418) -MRCP completed (02/09): cholelithiasis seen, inspissated bile sludge opacifying GB lumen, bile/sludge in extrahepatic fannie tract, no obvious evidence of choledocholithiasis, diffuse hepatic steatosis seen -ERCP today (02/10) -Cholecystectomy to be performed on Sunday (02/12) -Continue metronidazole 500 mg q8 IVPB, Levofloxacin 50mg IVPB daily (day 2) -Consulted Dr. Parsons for GI -Consulted Dr. Hernandez (surgery) -Cholesterol 115, triglycerides 218 (both elevated) 2. Hemorrhoids, chronic- resolved 3. Asthma -No acute exacerbation -Continue Symbicort PRN 4. NIDDMII -On metformin at home, will hold now -Follow sugars BGM ACHS -Novolog ISS ACHS 5. HLD -Cholesterol 115, triglycerides 218 (both elevated) Prophylaxis Early ambulation SCD's F/E/N -IVF NS @ 100 cc/hr -Clear liquid diabetic low Na diet -NPO after midnight Sunday night for cholecystectomy Sunday -monitor electrolytes General Yarsanism- will not accept blood transfusion Visit type - Emergency Visit Emergency Visit: No - New Patient This patient is new to me today: No - Critical Care Critical Care patient: No
[2017-02-10] MEDS ORDERED: INDOMETHACIN 50 MG RECTAL SUPPOSITORY PR ONE ×3 (13:29→14:27)
--- NOTE | 2017-02-10 13:39 | PN ---
Teaching Attending Note Name of Resident: Rosie Tyler ATTENDING PHYSICIAN STATEMENT I saw and evaluated the patient. I reviewed the resident's note and discussed the case with the resident. I agree with the resident's findings and plan as documented. SUBJECTIVE:asymptomatic. very small BM yesterday. denies CP, SOB, fever, chills , N/V/C/D OBJECTIVE: Last Vital Signs Temp Pulse Resp BP Pulse Ox 98.3 F 60 18 143/87 99 02/10/17 05:00 02/10/17 05:00 02/10/17 09:00 02/10/17 05:00 02/09/17 09:00 General NAD CV S1 S2 RRR o murmur/rub/gallop Lungs CTA B/L no wheezing/rales/rhonchi Abdomen soft NT/ND no burns sign obese ASSESSMENT AND PLAN: 65-year-old woman with a history of type 2 DM, hyperlipidemia, asthma, cholelithiasis who presented to the ER with RUQ abdominal pain and nausea. 1. Biliary colic and possible choledocholithiasis. clinically improved. no longer asymptomatic. s/p ERCP today. unaware of results at this time. will cont liquid diet for now. IVF to prevent pancreatitis. cont to trend liver enzymes as improving. plan for cholecystectomy on Sunday. cont levaquin/Flagyl day 2. pain and nausea control. indomethacin suppository given. 2. Type 2 DM-monitor closely as on clear liquid diet. hold oral agents. ISS 3. Asthma- Stable 4. Hyperlipidemia 5. Obesity with BMI 38.4 6. DVT ppx- re-start hep sq in AM.
[2017-02-10] MEDS ORDERED: ONDANSETRON 4 MG/2 ML VIAL IVPUSH PRN (14:25)
[2017-02-10] MEDS ORDERED: PROMETHAZINE HCL 25 MG/1 ML VIAL IVPUSH PRN (14:25)
[2017-02-10] MEDS ORDERED: morphine CARPU-JECT 2 MG/1 ML DISP.SYRIN IVPUSH PRN (14:27)
[2017-02-10] MEDS ORDERED: SODIUM CHLORIDE 1,000 ML IV SCH (14:27)
[2017-02-10] MEDS ORDERED: LACTATED RINGERS SOLUTION 1,000 ML IV SCH (14:30)
[2017-02-11] MEDS: METRONIDAZOLE 500 MG PREMIXED 100 ML IVPB SCH ×3 (02:41→17:13)
[2017-02-11] MEDS ORDERED: MELATONIN 5 MG TABLETS PO ONE (03:26)
[2017-02-11] MEDS: INSULIN SLIDING SCALE (NOVOLOG) 1 VIAL SQ SCH ×4 (06:04→21:13)
[2017-02-11 08:48] LABS: ALBUMIN 3.2 g/dl (3.4-5.0); ANION GAP 7 (8-16); CALCIUM 8.5 mg/dL (8.5-10.1); CO2 28 mmol/L (21-32); CREATININE 0.7 mg/dL (0.55-1.02); GLUCOSE,RANDOM 109 mg/dL (74-106); SGOT/AST 103 U/L (15-37); SGPT/ALT 264 U/L (12-78)
[2017-02-11 08:49] LABS: ALK PHOS 171 U/L (45-117); TOT PROT 6.4 g/dl (6.4-8.2)
[2017-02-11] MEDS: LEVOFLOXACIN 500 MG IVPB 100 ML IVPB SCH (09:03)
--- NOTE | 2017-02-11 09:42 | PN ---
Progress Note (short form) - Note Progress Note: asymptomatic. requesting regular food. denies Cp, SOB,fever, chills, N/V/C/D. No Bm in 3 days Current Medications Generic Name Dose Route Start Last Admin Trade Name Sue PRN Reason Stop Dose Admin Metronidazole 100 mls @ 100 mls/hr 02/10/17 18:00 02/11/17 09:03 Flagyl 500mg Premixed Ivpb - IVPB 100 mls/hr Q8H-IV ISMAEL Administration Levofloxacin 100 mls @ 100 mls/hr 02/11/17 10:00 02/11/17 09:03 Levaquin 500 Mg Premixed Ivpb - IVPB 100 mls/hr DAILY ISMAEL Administration Sodium Chloride 1,000 mls @ 100 mls/hr 02/10/17 14:27 02/11/17 02:42 Normal Saline - IV 100 mls/hr ASDIR ISMAEL Administration Insulin Aspart 1 vial 02/10/17 16:30 02/11/17 06:04 Novolog Vial Sliding Scale - SQ Not Given ACHS ISMAEL Protocol Morphine Sulfate 2 mg 02/10/17 14:27 Morphine Injection - IVPUSH Q4H PRN PAIN Last Vital Signs Temp Pulse Resp BP Pulse Ox 98.2 F 61 18 139/71 95 02/11/17 08:00 02/11/17 08:00 02/11/17 08:00 02/11/17 08:00 02/10/17 21:00 General NAD CV S1 S2 RRR o murmur/rub/gallop Lungs CTA B/L no wheezing/rales/rhonchi Abdomen soft NT/ND no burns sign obese CMP Sodium 141 mmol/L (136-145) 02/11/17 06:00 Potassium 3.6 mmol/L (3.5-5.1) 02/11/17 06:00 Chloride 106 mmol/L (98-107) 02/11/17 06:00 Carbon Dioxide 28 mmol/L (21-32) 02/11/17 06:00 Anion Gap 7 (8-16) L 02/11/17 06:00 BUN 6 mg/dL (7-18) L D 02/11/17 06:00 Creatinine 0.7 mg/dL (0.55-1.02) 02/11/17 06:00 Creat Clearance w eGFR > 60 (>60) 02/11/17 06:00 Calcium 8.5 mg/dL (8.5-10.1) 02/11/17 06:00 Total Bilirubin 1.0 mg/dL (0.2-1.0) D 02/11/17 06:00 AST 103 U/L (15-37) H D 02/11/17 06:00 ALT 264 U/L (12-78) H D 02/11/17 06:00 Alkaline Phosphatase 171 U/L (45-117) H 02/11/17 06:00 Total Protein 6.4 g/dl (6.4-8.2) 02/11/17 06:00 Albumin 3.2 g/dl (3.4-5.0) L 02/11/17 06:00 ASSESSMENT AND PLAN: 65-year-old woman with a history of type 2 DM, hyperlipidemia, asthma, cholelithiasis who presented to the ER with RUQ abdominal pain and nausea. 1. Biliary colic and possible choledocholithiasis. clinically improved. transaminitis normalizing. no longer asymptomatic. s/p ERCP yesterday, report not available. requesting to eat regular food. call place out to GI for ERCP report. NPO bunny for surgery in AM. cont levaquin/Flagyl day 3. pain and nausea control. 2. Type 2 DM-reports does not comply with home medications. will check A1c. sugars controlled here but only on liquid diet. 3. Asthma- Stable 4. Hyperlipidemia 5. Obesity with BMI 38.4 6. DVT ppx- hep sq. hold in AM. Visit type - Emergency Visit Emergency Visit: Yes ED Registration Date: 02/08/17 Care time: The patient presented to the Emergency Department on the above date and was hospitalized for further evaluation of their emergent condition. - New Patient This patient is new to me today: No - Critical Care Critical Care patient: No - Discharge Referral Referred to [facility] Med [facility].C[facility] No
[2017-02-11] MEDS ORDERED: PHENOL 177 ML SPRAY BOTTLE MM PRN (10:04)
[2017-02-11] MEDS ORDERED: ENOXAPARIN NA (PORCINE) 40 MG/0.4 ML DISP.SYRIN SQ ONE (10:15)
--- NOTE | 2017-02-11 12:16 | PN ---
Progress Note (short form) - Note Progress Note: surgery pt feels well. s/p ercp. on diet. no pain. afebrile abd- soft, nt plan- pt agreeable for cholecystectomy as inpatient. will move in direction next 24-48 hours as labs cont to improve. Laboratory Tests 02/09/17 02/10/17 02/11/17 06:05 06:20 06:00 Total Bilirubin 2.9 H D 3.8 H D 1.0 D AST 532 H D 292 H D 103 H D ALT 418 H D 397 H 264 H D Alkaline Phosphatase 183 H 188 H 171 H
--- NOTE | 2017-02-11 13:53 | PN ---
GI Progress Note Subjective: s/p ERC with removal of CBD stones, no abdominal pain, tolerating solid food - Objective Vital Signs: Vital Signs Temperature 97.5 F L 02/11/17 13:39 Pulse Rate 62 02/11/17 13:39 Respiratory Rate 18 02/11/17 08:00 Blood Pressure 129/79 02/11/17 13:39 O2 Sat by Pulse Oximetry (%) 97 02/11/17 09:00 Constitutional: Well Nourished Eyes: Yes: Conjunctiva Clear HENT: Yes: Atraumatic Neck: Yes: Trachea Midline Cardiovascular: Yes: Regular Rate and Rhythm Respiratory: Yes: CTA Bilaterally ...Palpate: Yes: Soft. No: Firm/Rigid, Guarding, Hepatomegaly, Mass, Pulsatile Mass, Splenomegaly, Tenderness Labs: CBC, BMP 02/10/17 06:20 02/11/17 06:00 INR, PTT INR 1.15 (0.82-1.09) H 02/09/17 09:54 Problem List - Problems (1) Choledocholithiasis Assessment/Plan: s/p ERC R> for cholecystectomy recall as necessary Code(s): K80.50 - CALCULUS OF BILE DUCT W/O CHOLANGITIS OR CHOLECYST W/O OBST (2) Cholelithiasis Code(s): K80.20 - CALCULUS OF GALLBLADDER W/O CHOLECYSTITIS W/O OBSTRUCTION
--- NOTE | 2017-02-11 17:06 | PN ---
Progress Note, Physician Chief Complaint: Pt. pain controlled, no GA complaints. - Current Medication List Current Medications: Active Medications Metronidazole (Flagyl 500mg Premixed Ivpb -) 100 mls @ 100 mls/hr IVPB Q8H-IV ISMAEL Last Admin: 02/11/17 09:03 Dose: 100 mls/hr Levofloxacin (Levaquin 500 Mg Premixed Ivpb -) 100 mls @ 100 mls/hr IVPB DAILY ISMAEL Last Admin: 02/11/17 09:03 Dose: 100 mls/hr Insulin Aspart (Novolog Vial Sliding Scale -) 1 vial SQ ACHS ISMAEL PRN Reason: Protocol Last Admin: 02/11/17 16:13 Dose: Not Given Morphine Sulfate (Morphine Injection -) 2 mg IVPUSH Q4H PRN PRN Reason: PAIN Phenol/Menthol (Chloraseptic -) 1 spray MM Q6HPO PRN PRN Reason: SORE THROAT - Objective Vital Signs: Vital Signs Temperature 97.5 F L 02/11/17 13:39 Pulse Rate 62 02/11/17 13:39 Respiratory Rate 18 02/11/17 08:00 Blood Pressure 129/79 02/11/17 13:39 O2 Sat by Pulse Oximetry (%) 97 02/11/17 09:00 Constitutional: Yes: Well Nourished, No Distress, Calm Neurological: Yes: WNL, Alert, Oriented Labs: CBC, BMP 02/10/17 06:20 02/11/17 06:00 INR, PTT INR 1.15 (0.82-1.09) H 02/09/17 09:54 Assessment/Plan POD#1 s/p ERCP under GA. Doing well. D/C from anesthesia care.
[2017-02-12] MEDS: METRONIDAZOLE 500 MG PREMIXED 100 ML IVPB SCH ×3 (01:37→17:52)
[2017-02-12] MEDS: INSULIN SLIDING SCALE (NOVOLOG) 1 VIAL SQ SCH ×4 (06:07→21:29)
[2017-02-12 07:39] LABS: ALBUMIN 3.2 g/dl (3.4-5.0); ANION GAP 5 (8-16); CALCIUM 8.9 mg/dL (8.5-10.1); CO2 30 mmol/L (21-32); GLUCOSE,RANDOM 117 mg/dL (74-106)
[2017-02-12 07:44] LABS: ALK PHOS 154 U/L (45-117); BILIRUBIN,TOTAL 0.6 mg/dL (0.2-1.0); CREATININE 0.8 mg/dL (0.55-1.02); SGOT/AST 67 U/L (15-37); SGPT/ALT 195 U/L (12-78); TOT PROT 6.5 g/dl (6.4-8.2)
[2017-02-12] MEDS ORDERED: POTASSIUM CHLORIDE TABS 20 MEQ TABLET.ER (FP) PO ONE (09:00)
[2017-02-12] MEDS: LEVOFLOXACIN 500 MG IVPB 100 ML IVPB SCH (09:24)
--- NOTE | 2017-02-12 12:13 | PN ---
Teaching Attending Note Name of Resident: Rosie Tyler ATTENDING PHYSICIAN STATEMENT I saw and evaluated the patient. I reviewed the resident's note and discussed the case with the resident. I agree with the resident's findings and plan as documented. SUBJECTIVE:asymptomatic. denies Cp, SOB,fever, chills, N/V/C/D, or abdominal pain when eating OBJECTIVE: Last Vital Signs Temp Pulse Resp BP Pulse Ox 98.8 F 57 L 18 144/73 98 02/12/17 07:30 02/12/17 07:30 02/12/17 07:30 02/12/17 07:30 02/12/17 09:00 General NAD Abdomen soft NT/ND negative burns sign. obese ASSESSMENT AND PLAN: 65-year-old woman with a history of type 2 DM, hyperlipidemia, asthma, cholelithiasis who presented to the ER with RUQ abdominal pain and nausea. 1. Biliary colic and possible choledocholithiasis. -clinically improved. transaminitis normalizing. no longer asymptomatic. s/p ERCP with stone removal. NPO today for possible cholecystectomy. awaiting to hear from surgeon. if unable to fit on schedule plan will be for tomorrow. cont levaquin/Flagyl day 4. pain and nausea control. 2. Type 2 DM-A1c 7.1. was taking metformin 500mg BID, but was not compliant and was trying to control sugars with diet alone. will re-start on discharge. resident care director consult. 3. Asthma- Stable 4. Hyperlipidemia 5. Obesity with BMI 38.4 6. DVT ppx- hep sq. hold in AM.
[2017-02-12] MEDS ORDERED: PROPOFOL 20 ML ONE (13:25)
[2017-02-12] MEDS ORDERED: ROCURONIUM BROMIDE 50 MG/5 ML VIAL ONE (13:25)
[2017-02-12] MEDS ORDERED: ceFAZolin SODIUM 1 GM VIAL IVPB ONE (13:33)
[2017-02-12] MEDS ORDERED: MIDAZOLAM HCL 2 MG/2 ML SINGLE DOSE VIAL ONE (13:42)
[2017-02-12] MEDS ORDERED: NEOSTIGMINE METHYLSULFATE 0.5 MG/ML - 10 ML MDV ONE (14:34)
[2017-02-12] MEDS ORDERED: KETOROLAC TROMETHAMINE 30 MG/1 ML VIAL ONE (14:34)
[2017-02-12] MEDS ORDERED: ONDANSETRON 4 MG/2 ML VIAL ONE (14:34)
[2017-02-12] MEDS ORDERED: DEXAMETHASONE SOD PHOSPHATE 4 MG/1 ML VIAL ONE (14:34)
[2017-02-12] MEDS ORDERED: GLYCOPYRROLATE 0.2 MG/1 ML VIAL ONE ×2 (14:35)
--- NOTE | 2017-02-12 14:39 | OP ---
Operative Note - Note: Operative Date: 02/12/17 Pre-Operative Diagnosis: cholelithiasis, choledocholithiasis Operation: laparoscopic cholecystectomy, lavage Findings: pale, thickened gb Post-Operative Diagnosis: Same as Pre-op Surgeon: Moy Monroe Client Portfolio Manager: Sunny Dunlap Anesthesiologist/SURGICAL GARMENT INSPECTOR: Moy Mirza Anesthesia: General Specimens Removed: gb Estimated Blood Loss (mls): 30 Drains & Tubes with Location: ellis hepatic fossa Operative Report Dictated: Yes
[2017-02-12] MEDS ORDERED: ONDANSETRON 4 MG/2 ML VIAL IVPB PRN (14:40)
[2017-02-12] MEDS ORDERED: morphine CARPU-JECT 4 MG/1 ML DISP.SYRIN IVPB PRN (14:40)
[2017-02-12] MEDS ORDERED: oxyCODONE HCL 5 MG TABLET PO PRN ×2 (14:40→15:01)
[2017-02-12] MEDS ORDERED: ACETAMINOPHEN 325 MG TABLET (FP) PO PRN (14:40)
[2017-02-12] MEDS ORDERED: PROMETHAZINE HCL 25 MG/1 ML VIAL IVPUSH PRN (15:01)
[2017-02-12] MEDS ORDERED: ONDANSETRON 4 MG/2 ML VIAL IVPUSH PRN (15:01)
[2017-02-12] MEDS ORDERED: PHENOL 177 ML SPRAY BOTTLE MM PRN (15:47)
[2017-02-12] MEDS: D5-1/2NS+20 MEQ KCL - 1,000 ML IV SCH (16:52)
--- NOTE | 2017-02-12 17:50 | PN ---
Physical Exam: SUBJECTIVE: Patient seen and examined at bedside. Pt is eager to have lap nguyễn procedure and is concerned it will occur tomorrow. Denies chest or abdominal pain, or SOB. OBJECTIVE: Vital Signs Period Temp Pulse Resp BP Sys/Gonzalez Pulse Ox Last 24 Hr 98.2 F-98.8 F 54-65 14-18 140-154/66-89 94-100 GENERAL: The patient is awake, alert, and fully oriented, in no acute distress. HEAD: Normal with no signs of trauma. EYES: PERRL, extraocular movements intact, sclera anicteric, conjunctiva clear. No ptosis. NECK: Trachea midline, full range of motion, supple. LUNGS: Breath sounds equal, clear to auscultation bilaterally, no wheezes, no crackles, no accessory muscle use. HEART: Regular rate and rhythm, S1, S2 without murmur, rub or gallop. ABDOMEN: Soft, nontender, nondistended, normoactive bowel sounds, no guarding, no rebound, no hepatosplenomegaly, no masses. EXTREMITIES: 2+ posterior tibial pulses, warm, well-perfused, no edema. NEUROLOGICAL: Cranial nerves II through XII grossly intact. Laboratory Results - last 24 hr 02/11/17 02/12/17 02/12/17 20:45 05:44 06:30 Sodium 140 Potassium 3.4 L Chloride 105 Carbon Dioxide 30 Anion Gap 5 L BUN 8 D Creatinine 0.8 Creat Clearance w eGFR > 60 POC Glucometer 119 116 Random Glucose 117 H Calcium 8.9 Total Bilirubin 0.6 D AST 67 H D ALT 195 H D Alkaline Phosphatase 154 H Total Protein 6.5 Albumin 3.2 L 02/12/17 11:17 Sodium Potassium Chloride Carbon Dioxide Anion Gap BUN Creatinine Creat Clearance w eGFR POC Glucometer 108 Random Glucose Calcium Total Bilirubin AST ALT Alkaline Phosphatase Total Protein Albumin Active Medications Generic Name Dose Route Start Last Admin Trade Name Freq PRN Reason Stop Dose Admin Acetaminophen 650 mg 02/12/17 14:40 Tylenol - PO Q4H PRN FEVER OR PAIN Enoxaparin Sodium 40 mg 02/13/17 10:00 Lovenox - SQ DAILY ISMAEL Fentanyl 50 mcg 02/12/17 15:01 Sublimaze Injection - IVPUSH 02/15/17 15:02 [id number] PRN PAIN Pantoprazole Sodium 40 mg/ 100 mls @ 200 mls/hr 02/13/17 10:00 Sodium Chloride IVPB DAILY ISMAEL Potassium Chloride/Dextrose/Sod Cl 1,000 mls @ 100 mls/hr 02/12/17 14:45 D5-1/2ns+20 Meq Kcl - IV ASDIR ISMAEL Metronidazole 100 mls @ 100 mls/hr 02/12/17 18:00 Flagyl 500mg Premixed Ivpb - IVPB Q8H-IV ISMAEL Levofloxacin 100 mls @ 100 mls/hr 02/13/17 10:00 Levaquin 500 Mg Premixed Ivpb - IVPB DAILY [facility] Insulin Aspart 1 vial 02/12/17 16:30 Novolog Vial Sliding Scale - SQ ACHS ISMAEL Protocol Morphine Sulfate 4 mg 02/12/17 14:40 Morphine Injection - IVPB Q3H PRN MODERATE PAIN Ondansetron HCl 4 mg 02/12/17 14:40 Zofran Injection IVPB Q6H PRN NAUSEA Ondansetron HCl 4 mg 02/12/17 15:01 Zofran Injection IVPUSH 02/12/17 21:02 Q6H PRN NAUSEA AND/OR VOMITING Oxycodone HCl 7.5 mg 02/12/17 14:40 Roxicodone - PO Q4H PRN PAIN Oxycodone HCl 10 mg 02/12/17 15:01 Roxicodone - PO 02/13/17 15:00 Q4H PRN SEVERE PAIN Phenol/Menthol 1 spray 02/12/17 15:47 Chloraseptic - MM Q6HPO PRN SORE THROAT Promethazine HCl 12.5 mg 02/12/17 15:01 Phenergan Injection - IVPUSH 02/12/17 21:02 Q6H PRN NAUSEA ASSESSMENT/PLAN: This is a 65-year-old F with PMH of diabetes, hyperlipidemia, asthma, cholelithiasis admitted for cholelithiasis secondary to possible choledocholithiass. 1. RUQ abdominal pain likely secondary to choledocholithiasis -Lap nguyễn 02/12/2017, pt currently in PACU -Will monitor and check pt's progress tomorrow, if OOB, passing gas, afebrile, etc. can d/c plan -Day 2 of Levaquin 2. Hemorrhoids, chronic- resolved 3. Asthma -No acute exacerbation -Continue Symbicort PRN 4. NIDDMII -A1c 7.1 -Will be able to send home on Metformin- 500 mg BID 5. HLD -Cholesterol 115, triglycerides 218 (both elevated) Prophylaxis Early ambulation SCD's General Bahai- will not accept blood transfusion d/c planning Visit type - Emergency Visit Emergency Visit: No - New Patient This patient is new to me today: No - Critical Care Critical Care patient: No
[2017-02-13] MEDS: METRONIDAZOLE 500 MG PREMIXED 100 ML IVPB SCH ×2 (01:16→09:23)
[2017-02-13] MEDS: INSULIN SLIDING SCALE (NOVOLOG) 1 VIAL SQ SCH ×2 (06:04→12:01)
[2017-02-13] MEDS: D5-1/2NS+20 MEQ KCL - 1,000 ML IV SCH (06:24)
[2017-02-13 07:21] LABS: ANION GAP 6 (8-16); CALCIUM 8.7 mg/dL (8.5-10.1); CO2 30 mmol/L (21-32); CREATININE 0.8 mg/dL (0.55-1.02); GLUCOSE,RANDOM 138 mg/dL (74-106)
[2017-02-13] MEDS ORDERED: PANTOPRAZOLE SODIUM 40 MG VIAL ONE (09:12)
[2017-02-13] MEDS ORDERED: SODIUM CHLORIDE 100 ML IVPB ONE (09:13)
[2017-02-13] MEDS ORDERED: ENOXAPARIN NA (PORCINE) 40 MG/0.4 ML DISP.SYRIN SQ SCH (10:00)
[2017-02-13] MEDS ORDERED: LEVOFLOXACIN 500 MG IVPB 100 ML IVPB SCH (10:00)
[2017-02-13] MEDS ORDERED: PANTOPRAZOLE SODIUM 40 MG in SODIUM CHLORIDE 100 ML IVPB SCH (10:00)
--- NOTE | 2017-02-13 11:25 | PN ---
Physical Exam: SUBJECTIVE: Patient seen and examined at bedside. Has mild abdominal pain post- op day 1 s/p cholecystectomy. Denies SOB, chest pain, lower extremity pain. OBJECTIVE: Vital Signs Period Temp Pulse Resp BP Sys/Gonzalez Pulse Ox Last 24 Hr 98.2 F-99.7 F 54-65 14-20 130-154/66-86 94-100 GENERAL: The patient is awake, alert, and fully oriented, in no acute distress. HEAD: Normal with no signs of trauma. EYES: PERRL, extraocular movements intact, sclera anicteric, conjunctiva clear. No ptosis. ENT: oropharynx clear without exudates, moist mucous membranes. NECK: Trachea midline, supple. LUNGS: Breath sounds equal, clear to auscultation bilaterally, no wheezes, no crackles, no accessory muscle use. HEART: Regular rate and rhythm, S1, S2 without murmur, rub or gallop. ABDOMEN: Mildly tender abdomen post op, incisions healing well, few ml blood draining in RYAN- WNL EXTREMITIES: 2+ posterior tibial pulses, warm, well-perfused, no edema. NEUROLOGICAL: Cranial nerves II through XII grossly intact. Laboratory Results - last 24 hr 02/12/17 02/12/17 02/12/17 11:17 17:26 21:28 Sodium Potassium Chloride Carbon Dioxide Anion Gap BUN Creatinine POC Glucometer 108 170 148 Random Glucose Calcium 02/13/17 02/13/17 05:49 06:05 Sodium 141 Potassium 4.0 Chloride 105 Carbon Dioxide 30 Anion Gap 6 L BUN 12 D Creatinine 0.8 POC Glucometer 141 Random Glucose 138 H Calcium 8.7 Active Medications Generic Name Dose Route Start Last Admin Trade Name Sue PRN Reason Stop Dose Admin Acetaminophen 650 mg 02/12/17 14:40 Tylenol - PO Q4H PRN FEVER OR PAIN Enoxaparin Sodium 40 mg 02/13/17 10:00 02/13/17 09:25 Lovenox - SQ 40 mg DAILY ISMAEL Administration Fentanyl 50 mcg 02/12/17 15:01 Sublimaze Injection - IVPUSH 02/15/17 15:02 [id number] PRN PAIN Pantoprazole Sodium 40 mg/ 100 mls @ 200 mls/hr 02/13/17 10:00 02/13/17 09:23 Sodium Chloride IVPB 200 mls/hr DAILY ISMAEL Administration Potassium Chloride/Dextrose/Sod Cl 1,000 mls @ 100 mls/hr 02/12/17 14:45 06:24 D5-1/2ns+20 Meq Kcl - IV 100 mls/hr ASDIR ISMAEL Administration Metronidazole 100 mls @ 100 mls/hr 02/12/17 18:00 02/13/17 09:23 Flagyl 500mg Premixed Ivpb - IVPB 100 mls/hr Q8H-IV ISMAEL Administration Levofloxacin 100 mls @ 100 mls/hr 02/13/17 10:00 02/13/17 09:23 Levaquin 500 Mg Premixed Ivpb - IVPB 100 mls/hr DAILY ISMAEL Administration Insulin Aspart 1 vial 02/12/17 16:30 02/13/17 06:04 Novolog Vial Sliding Scale - SQ Not Given ACHS ISMAEL Protocol Morphine Sulfate 4 mg 02/12/17 14:40 Morphine Injection - IVPB Q3H PRN MODERATE PAIN Ondansetron HCl 4 mg 02/12/17 14:40 Zofran Injection IVPB Q6H PRN NAUSEA Oxycodone HCl 7.5 mg 02/12/17 14:40 Roxicodone - PO Q4H PRN PAIN Oxycodone HCl 10 mg 02/12/17 15:01 Roxicodone - PO 02/13/17 15:00 Q4H PRN SEVERE PAIN Phenol/Menthol 1 spray 02/12/17 15:47 Chloraseptic - MM Q6HPO PRN SORE THROAT ASSESSMENT/PLAN: This is a 65-year-old F with PMH of diabetes, hyperlipidemia, asthma, cholelithiasis admitted for cholelithiasis secondary to possible choledocholithiass. 1. RUQ abdominal pain likely secondary to choledocholithiasis -Lap nguyễn 02/12/2017 -Pt recovering, has been OOB -RYAN draining few ml blood -Spoke to surgery, metro and levaquin Abx can be d/c and pt will f/u next week in office to get drain out, pt can go swimming on trip 2. Hemorrhoids, chronic- resolved 3. Asthma -No acute exacerbation -Continue Symbicort PRN 4. NIDDMII -A1c 7.1 -Will be able to send home on Metformin- 500 mg BID 5. HLD -Cholesterol 115, triglycerides 218 (both elevated) Prophylaxis Early ambulation SCD's General Nondenominational- will not accept blood transfusion d/c planning Visit type - Emergency Visit Emergency Visit: No - New Patient This patient is new to me today: No - Critical Care Critical Care patient: No
--- NOTE | 2017-02-13 12:28 | PN ---
Teaching Attending Note Name of Resident: Rosie Tyler ATTENDING PHYSICIAN STATEMENT I saw and evaluated the patient. I reviewed the resident's note and discussed the case with the resident. I agree with the resident's findings and plan as documented. SUBJECTIVE:states pain is controlled off medication. tolerating diet. denies CP , SOB,fever, chills, N/V/C/D OBJECTIVE: Last Vital Signs Temp Pulse Resp BP Pulse Ox 98.7 F 65 20 152/87 98 02/13/17 06:00 02/13/17 09:00 02/13/17 09:00 02/13/17 09:00 02/13/17 09:00 General NAD Abdomen soft tender over trochar sites, incisions clean and intact, +RUQ RYAN drain tender over site, occlusion dressing in place. seroussangenous drainage in RYNA drain ASSESSMENT AND PLAN: 65-year-old woman with a history of type 2 DM, hyperlipidemia, asthma, cholelithiasis who presented to the ER with RUQ abdominal pain and nausea. 1. Biliary colic and possible choledocholithiasis. -s/p lap cholecystectomy with RYAN drain in place 02/12. tolerated surgery well. clinically improved. pain controlled without narcotics. Levaquin/Flagyl day5. can d/c abx after today per surgery. d/c planning with RYAN drain in place and f/u with surgeon next week in office for removal. 2. Type 2 DM-A1c 7.1. d/c home on metformn 500mg BID. nutrition consult. 3. Asthma- Stable 4. Hyperlipidemia 5. Obesity with BMI 38.4- discussed iwth patient dietary modifications and excercise. she is currently in aggressive excercise program which she will have to be placed on hold due to recent surgery 6. DVT ppx- hep sq. 7. d/c home with RYAN drain with surgery f/u next week
[2017-02-13 14:08] VITALS: BP 142/74; PULSE 56; TEMP 98
--- NOTE | 2017-02-13 14:12 | DS ---
Physical Exam: SUBJECTIVE: Patient seen and examined at bedside today. Pt endorses mild abdominal pain, s/p lap nguyễn yesterday. Today is Post-op day 1. Pt has been OOB. Denies SOB, extremity pain. Pt tolerating diet well. OBJECTIVE: Vital Signs Period Temp Pulse Resp BP Sys/Gonzalez Pulse Ox Last 24 Hr 98.2 F-99.7 F 54-65 14-20 130-154/66-87 94-100 PHYSICAL EXAM GENERAL: The patient is awake, alert, and fully oriented, in no acute distress. HEAD: Normal with no signs of trauma. EYES: PERRL, extraocular movements intact, sclera anicteric, conjunctiva clear. ENT: Ears normal, nares patent, oropharynx clear without exudates, moist mucous membranes. NECK: Trachea midline, full range of motion, supple. LUNGS: Breath sounds equal, clear to auscultation bilaterally, no wheezes, no crackles, no accessory muscle use. HEART: Regular rate and rhythm, S1, S2 without murmur, rub or gallop. ABDOMEN: mild tenderness in RUQ, RLQ, normoactive bowel sounds, no guarding, no rebound, no hepatosplenomegaly, no masses. RYAN drain- draining 2-3 mls of blood EXTREMITIES: 2+ posterior tibial pulses, warm, well-perfused, no edema. NEUROLOGICAL: Cranial nerves II through XII grossly intact. VITALS TREND/LABS Vitals Trend 02/08/17 02/08/17 02/08/17 15:02 20:26 23:01 Temperature 97.9 F 99 F 98.8 F Pulse Rate 65 61 Blood Pressure 126/95 151/80 02/09/17 02/09/17 02/09/17 08:02 14:25 17:35 Temperature 98.3 F 98.4 F 98.0 F Pulse Rate Blood Pressure 143/82 143/79 142/81 02/10/17 02/10/17 02/10/17 05:00 14:20 14:35 Temperature 98.3 F 98.6 F Pulse Rate 60 69 75 Blood Pressure 143/87 157/77 148/74 02/10/17 02/10/17 02/10/17 14:50 15:11 18:00 Temperature 98.4 F 98.5 F 97.9 F Pulse Rate 63 52 L 58 L Blood Pressure 152/64 148/78 140/80 02/11/17 02/11/17 02/11/17 05:08 08:00 13:39 Temperature 98.2 F 98.2 F 97.5 F L Pulse Rate 60 61 62 Blood Pressure 140/75 139/71 129/79 02/11/17 02/11/17 02/12/17 18:00 22:00 05:31 Temperature 98.6 F 98.8 F 98.2 F Pulse Rate 62 58 L Blood Pressure 146/89 145/76 02/12/17 02/12/17 02/12/17 07:30 14:59 16:15 Temperature 98.8 F 98.4 F 98.4 F Pulse Rate Blood Pressure 02/12/17 02/12/17 02/12/17 16:36 16:46 20:00 Temperature 98.2 F 98.2 F 98.2 F Pulse Rate Blood Pressure 02/12/17 22:00 Temperature 99.7 F H Pulse Rate Blood Pressure Laboratory Tests 02/08/17 02/08/17 02/09/17 17:20 17:20 06:05 WBC 6.2 Hgb 12.5 Hct 39.2 Plt Count 209 INR Total Bilirubin 1.9 H D 2.9 H D AST 288 H D 532 H D ALT 163 H D 418 H D Albumin 3.3 L 02/09/17 02/10/17 02/11/17 09:54 06:20 06:00 WBC Hgb Hct Plt Count INR 1.15 H Total Bilirubin 3.8 H D AST 292 H D 103 H D ALT 397 H 264 H D Albumin 3.2 L 3.2 L IMAGING 02/08/17: Ultrasound: GB stones with largest 2.2cm, with sludge posteriorly, but no evidence of acute cholecystitis. 02/08/17: EKG: normal sinus rhythm 02/09/17: MRCP: cholelithiasis, GB overdistended with inspissated bile/sludge opacifying the gallbladder lumen. Inspissated bile/sludge within the length of the extrahepatic bliary tract. 02/10/17: ERCP: stones removed from common bile duct SURGERIES 02/12/17: Laparoscopic cholecystectomy HOSPITAL COURSE: Date of Admission:02/08/17 Date of Discharge: 02/13/17 Admit diagnosis: Cholelithiasis secondary to possible choledocholithiasis Pre-admission course Patient is a 56 year old female with a PMHx of NIDDMII, HLD, Asthma, and cholelithiasis who presents for right upper quadrant pain for the last three days associated with nausea but no vomiting and diarrhea. Patient states she has a history of gallstones and has experienced similar pain the past. Otherwise, patient denies fever, chills, chest pain, palpitations, shortness of breath. Hospital course Once patient was on the floor, her cholelithasis/ possible cholecystitis/ choledocholithiasis was managed with IV fluids, Flagyl and Levofloxacin 5 day course, morphine for pain control and made NPO. Ultrasound showed GB stones with largest as 2.2cm, with sludge posteriorly, without evidence of cholecystitis. MRCP was done and showed cholelithiasis, GB overdistended with inspissated bile/sludge opacifying the gallbladder lumen. Inspissated bile/ sludge within the length of the extrahepatic bliary tract was also noted. ERCP was done to remove stones from CBD. Pt then had lap nguyễn on 02/12/17. RYAN drain has been draining a few ml of blood (WNL), and will be monitored for any changes , and removed in 1 week by surgeon. During this time, pt's A1c also returned at 7.1. She is being given Metformin 500 mg PO BID on discharge and will follow-up with her primary care physician, surgeon, and GI doctor, Dr. Tyler. Minutes to complete discharge: 32 Discharge Summary Reason For Visit: CHOLELITHIASIS Current Active Problems Abdominal pain (Acute) Choledocholithiasis (Acute) Cholelithiasis (Acute) Diabetes (Chronic) Obesity (BMI 30-39.9) (Chronic) Condition: Critical - Instructions Diet, Activity, Other Instructions: You were recently in the hospital to get your gallbladder removed. Please avoid heavy lifting over the next 6-8 weeks, so your incisions can heal. You may resume your home medications. Please follow-up with your surgeon, Dr. Monroe, a filing clerk, Dr. Mora and your primary care physician, Dr. Ramos in a week. Dr. Monroe will remove your surgical drain in 1 week, when you follow-up in his office. Once this is removed, you are free to go swimming on your vacation. We have also provided you with a note for your gym- please refrain from physical training for 6-8 weeks while you recover. It is important to also control your blood sugar for your heart health. Please take your metformin 500mg (1 tablet) twice a day. If you notice any yellow-green discharge in your surgical drain, or experience any severe abdominal or chest pain, or if you become short of breath or develop any new symptoms, please go to the hospital. We hope you feel better soon. Referrals: Saul Mora MD [Staff Physician] - Demetrice Ramos MD [Primary Care Provider] - Moy Monroe MD [Staff Physician] - Disposition: HOME - Home Medications Comprehensive Discharge Medication List: Ambulatory Orders Metformin HCl 500 mg PO BID #60 tablet 02/13/17 This patient is new to me today: No Emergency Visit: No Critical Care patient: No - Discharge Referral Referred to [facility] No
--- NOTE | 2017-02-13 15:34 | OP ---
DATE OF OPERATION: 02/12/2017 PREOPERATIVE DIAGNOSES: Choledocholithiasis, cholelithiasis. POSTOPERATIVE DIAGNOSES: Choledocholithiasis, cholelithiasis. PROCEDURE: Laparoscopic cholecystectomy, lavage. SURGEON: Moy Monroe DO BIOMETRIC FINGERPRINTING TECHNICIAN: Sunny Dunlap MD ANESTHESIOLOGIST: Moy Mirza MD INTRAOPERATIVE FINDINGS: A pale, thickened gallbladder with a generous cystic duct. DRAINS: Dustin-Santiago drain in the gallbladder fossa. BLOOD LOSS: Minimal. COMPLICATIONS: None. DISPOSITION: To recovery room in stable condition. SPECIMEN: Gallbladder. BRIEF HISTORY: This is a 56-year-old female who presented to [facility] with choledocholithiasis. She underwent an ERCP, sphincterotomy, stone extraction, and presents now with a cholecystectomy to prevent future recurrence. The patient was already on antibiotic and presents now for surgery. DESCRIPTION OF PROCEDURE: The patient was placed in a supine position. After general anesthesia was initiated, the abdomen was prepped and draped in sterile fashion. A transverse incision was made infraumbilical with scalpel used to go through the skin and subcutaneous tissue. The fascia was then lifted with a Ishaan clamp. Veress needle was inserted, and pneumoperitoneum was created. Next, an 11-mm trocar was inserted followed by insertion of a 10-mm 0-degree laparoscope. Next , an additional 11-mm trocar was placed subxiphoid, and two 5-mm trocars were placed in the right upper quadrant, one was in the midclavicular line and one was in the anterior axillary line. At this point, attention was turned toward the gallbladder. It was pale, thickened, and edematous consistent with chronic cholecystitis. The fundus was lifted cephalad. The infundibulum retracted laterally. The peritoneal peel was dissected down exposing a thin yet generous cystic duct as well as a small cystic artery. The cystic duct was clipped and divided, the cystic artery as well. The gallbladder was then liberated from the liver bed using electrocautery. Hemostasis was maintained using electrocautery. There was significant inflammatory fluid in this area and, therefore, a Dustin-Santiago drain was left in the gallbladder fossa and secured with a silk drain stitch after being brought out through the lateral trocar site. Next, after a limited lavage was done, all return was noted to be clear. Trocars were then removed under direct visualization. The gallbladder was removed with a specimen bag, and pneumoperitoneum was released. There was no bleeding noted at the trocar sites. Next, the fascia of the infraumbilical trocar site was then closed with multiple interrupted 0 Vicryl sutures. The 3 remaining skin incisions were closed with subcuticular Biosyn, and Dermabond dressing was placed. Overall, the patient tolerated the procedure well. There were no complications. DO RAUL PEREZ/[id number] MTDD
--- NOTE | 2017-02-14 14:03 | PATH ---
Surgical Pathology Report Patient Name: TWYLA LEARY [facility] Rec. #: [id number] /Age/Gender: 1960 (Age: 56) / F Account: [id number] Location: [address] [place] [address]/[facility] Taken: 02/12/2017 Received: 02/13/2017 Reported: 02/14/2017 Physicians: Moy Monroe M.D. Specimen(s) Received GALLBLADDER Clinical History Cholelithiasis Final Diagnosis GALLBLADDER, CHOLECYSTECTOMY: CHRONIC CHOLECYSTITIS AND CHOLELITHIASIS. Electronically Signed Maulik Phillips M.D. Gross Description Received in formalin, labeled "gallbladder," is a 12 x 4.5 x 2.5 cm. gallbladder with a 0.2 cm. in length portion of cystic duct attached. The outer surface is sunshine and brown and varies from smooth to shaggy. The lumen contains cloudy brown fluid, along with 4 gallstones each of which is between 0.9 and 1.8 cm in greatest dimension.. The mucosa is sunshine, flattened, and trabeculated. The wall of the gallbladder measures 0.2 cm. in thickness. Monitor And Storage Bin Tender sections are submitted in one cassette. [facility]/02/13/2017 [facility]/02/13/2017
== END 2017-02-13 15:54 | disposition home or self-care (01) | DRG 419 ==
LOC: JER 15:00 → JERBED 20:26 → J6S 02-09 00:25
PROVIDERS: ADMIT Internal Medicine; ATTEND Internal Medicine
PROC: 0FC98ZZ Extirpation of Matter from Common Bile Duct, Via Natural or Artificial Opening Endoscopic (ICD-10-PCS; 2017-02-10)
PROC: BF10YZZ Fluoroscopy of Bile Ducts using Other Contrast (ICD-10-PCS; 2017-02-10)
PROC: 0FT44ZZ Resection of Gallbladder, Percutaneous Endoscopic Approach (ICD-10-PCS; principal; 2017-02-12 13:00)
DX: K80.20 Calculus of gallbladder without cholecystitis without obstruction (principal); K80.50 Calculus of bile duct without cholangitis or cholecystitis without obstruction; E11.9 Type 2 diabetes mellitus without complications; K64.4 Residual hemorrhoidal skin tags; E78.5 Hyperlipidemia, unspecified; J45.909 Unspecified asthma, uncomplicated; E66.9 Obesity, unspecified; Z68.38 Body mass index [BMI] 38.0-38.9, adult; Z71.3 Dietary counseling and surveillance
CPT/HCPCS: 36415; 74182-TC; 74330-TC; 76705-TC; 80048; 80053; 80061; 80076; 81003; 81015; 82272; 83036; 83690; 83721; 84703; 85025; 85027; 85610; 85730; 86850; 86900; 86901; 88304-TC; 93005; 93010; 94760; 99284-25

== ENCOUNTER 2021-04-15 13:01 | Emergency (ER) | payer SELFPAY ==
[2021-04-15 13:20] VITALS: BP 152/51; PULSE 57; TEMP 98.5; BMI 35.9
[2021-04-15 15:31] LABS: PH,URINE 5.5 (5.0-8.0); URINE APPEARANCE CLEAR; URINE BILIRUBIN NEGATIVE (NEGATIVE); URINE COLOR YELLOW; URINE GLUCOSE (UA) 3+ (NEGATIVE); URINE KETONE TRACE (NEGATIVE); URINE LEUK ESTERASE NEGATIVE (NEGATIVE); URINE NITRITE NEGATIVE (NEGATIVE); URINE PROTEIN NEGATIVE (NEGATIVE)
[2021-04-15 15:31] LABS: BASO % 0.3 % (0-2.0); EOS % 0.1 % (0-4.5); HEMATOCRIT 39.8 % (32.4-45.2); LYMPH % 17.2 % (8-40); MCH 27.7 pg (25.7-33.7); MCHC 32.6 g/dl (32.0-36.0); MEAN CELL VOLUME 85.1 fl (80-96); MEAN PLT VOLUME 8.7 fl (7.5-11.1); MONO % 1.9 % (3.8-10.2); NEUT % 80.5 % (42.8-82.8); PLATELET COUNT 226 10^3/uL (134-434); RBC 4.68 M/mm3 (3.60-5.2); RDW 14.4 % (11.6-15.6); WHITE BLOOD COUNT 8.4 K/mm3 (4.0-10.0)
[2021-04-15 15:54] LABS: CALCIUM 8.8 mg/dL (8.5-10.1)
[2021-04-15 15:55] LABS: ALBUMIN 3.4 g/dl (3.4-5.0); BLOOD UREA NITROGEN 23.2 mg/dL (7-18)
[2021-04-15 15:58] LABS: CREATININE 1.2 mg/dL (0.55-1.3)
[2021-04-15 16:00] LABS: BILIRUBIN,TOTAL 0.2 mg/dL (0.2-1); TOT PROT 7.5 g/dl (6.4-8.2)
[2021-04-15] MEDS ORDERED: SODIUM CHLORIDE 0.9% 500 ML INFUS.BAG IV ONE (16:22)
[2021-04-15 18:46] LABS: CALCIUM 8.4 mg/dL (8.5-10.1)
[2021-04-15 18:47] LABS: ALBUMIN 3.3 g/dl (3.4-5.0); BLOOD UREA NITROGEN 20.9 mg/dL (7-18)
[2021-04-15 18:51] LABS: BILIRUBIN,TOTAL 0.2 mg/dL (0.2-1); TOT PROT 7.4 g/dl (6.4-8.2)
[2021-04-15 20:02] LABS: URINE APPEARANCE CLEAR; URINE BILIRUBIN NEGATIVE (NEGATIVE); URINE COLOR YELLOW; URINE GLUCOSE (UA) 2+ (NEGATIVE); URINE KETONE NEGATIVE (NEGATIVE); URINE LEUK ESTERASE NEGATIVE (NEGATIVE); URINE NITRITE NEGATIVE (NEGATIVE); URINE PROTEIN NEGATIVE (NEGATIVE); URINE UROBILINOGEN 0.2 mg/dL (0.2-1.0)
== END 2021-04-15 20:40 | disposition home or self-care (01) ==
LOC: JER 13:01
DX: R10.12 Left upper quadrant pain (principal); E11.69 Type 2 diabetes mellitus with other specified complication
CPT/HCPCS: 36415; 76775-TC; 80053; 81003; 85025; 87086; 99284-25